=== PATIENT | male | born 1950 | race Caucasian/White ===

== ENCOUNTER 2016-11-14 11:05 | Emergency (ER) | payer MEDICARE, OTHER ==
--- NOTE | 2016-11-14 11:17 | ERNOTE ---
Animal Bite ER Presenting Symptoms: bitten Time Seen by Provider: 11/14/16 11:05 Source: patient Exam Limitations: no limitations Immunizations: IMMUNIZATION HX History of Influenza Vaccine No Hx Pneumococcal Vaccination No Allergies/Adverse Reactions: Allergies No Known Allergies Allergy (Verified 11/14/16 11:14) Home Medications: HOME MEDICATIONS Albuterol Sulfate [Proair Hfa] 1 - 2 puff IH Q4H PRN 10/17/13 [Last Taken Unknown] Fluticasone/Salmeterol [Advair 500-50 Diskus] 1 puff IH BID 10/17/13 [Last Taken Unknown] Lisinopril [Zestril] 20 mg PO DAILY 10/17/13 [Last Taken Unknown] Tiotropium [place] [Spiriva] 1 cap IH DAILY 10/17/13 [Last Taken Unknown] Amox Tr/Potassium Clavulanate [Augmentin 875-125 Tablet] 875 mg PO Q12H #10 tab 11/14/16 [Last Taken Unknown] Narrative: Patient was in his front yard when three pit bulls came from across the neighbors and bit him, his , and daughter. They were able to get into the house and call the police. He sustained a laceration to his left leg, denies any other injuries. the neighbors claim that the dogs were up to date on their immunizations, the police has the dogs in quarantine. Date (Duration): 11/14/16 Time (Timing): 10:30 Location of Incident: Reports: home Animal Type: Reports: dog Animal Appearance: healthy Animal's Immunization Status: Reports: UTD Observation/Capture: Reports: animal known, animal can be observed for 10 days Context of Attack: Denies: approached animal Severity of injury: Reports: bitten Location of Injury: Reports: lower extremity (L) Associated symptoms: Denies: numbness distally Review of Systems - Review of Systems Constitutional: Absent: recent illness, fever ENT: Absent: nose congestion Respiratory: Absent: shortness of breath Cardiology: Absent: chest pain Gastrointestinal/Abdominal: Absent: nausea, vomiting, abdominal pain Genitourinary: Present: no symptoms reported Musculoskeletal: Present: See HPI Skin: Present: See HPI Neurological: Absent: weakness, numbness - Patient's Past Medical History Patient History - Medical: No pertinent hx Patient History - Cardiac/Respiratory: COPD, Hypertension Patient History - Cancer: No Hx of Cancer Patient History - Surgical Procedures: No surgical history Patient History - Other: None - Social History Living Situations: home Psych History: No pertinent hx Alcohol Use: none Drug Use: none - Immunizations Hx Pneumococcal Vaccination: No History of Influenza Vaccine: No Physical Exam - Physical Exam General Appearance: Present: wd/wn, alert, no apparent distress Respiratory: Present: no respiratory distress, normal breath sounds, no accessory muscle use, lungs clear Cardiovascular/Chest: Present: regular rate, rhythm, no murmur Extremity Exam: Present: normal except - - two laceration on left leg just above knee on medial thigh 6 and 4cm , surrounding abrasions Neurological Exam: Present: alert, oriented, normal mood/affect, no motor/ sensory deficits Skin Exam: Present: normal color, warm/dry ED Progress - Vital Signs Patient's Vital Signs:: I have reviewed the patient's vital signs. Vital Signs: Vital Signs 11/14/16 11:07 Temperature 36.4 C L Pulse Rate 81 Respiratory 14 Rate Blood Pressure 169/76 O2 Sat by Pulse 93 Oximetry - Progress/Reassessment Chief Complaint: Animal Bite Procedures Leg Anesthesia: Lidocaine w/ Epi Length of Repair/Wound (cm): 6 - 6 and 4cm Wound's Depth/Shape: into subcutaneous, linear Wound Explored: no foreign body Wound Intervention: irrigated w/saline Distal NVT: neuro/vasc intact Suture Size/Type: 3-0, prolene Number of Sutures: 7 - 3 and 4 Layer Closure: Simple Wound Dressing: sterile dressing applied Departure Clinical Impression: Dog bite Qualifiers: Encounter type: initial encounter Qualified Code(s): W54.0XXA - Bitten by dog, initial encounter - Departure Disposition: Home self-care Condition: Good Instructions: Animal Bite Additional Instructions: have the sutures removed in 12 days Referrals: Marjorie Slaughter MD [Staff Physician] - Prescriptions: Amox Tr/Potassium Clavulanate [Augmentin 875-125 Tablet] 875 mg PO Q12H #10 tab
--- OUTSIDE RECORDS SUMMARY | 2016-11-14 11:34 | XMS REPORT | Continuity of Care Document ---
:1950 Author Organization [facility] ([facility]) Address [address] [place] [address] Phone [phone] Care Team Providers Name Role Phone Marcelo Stewart Primary Care Provider [phone] Source Comments This disclosure is being made pursuant to the Care Everywhere program, applicable federal and state laws, and may not contain all informaitonavailable regarding this patient.[facility] ([facility]) Active Allergies and Adverse Reactions No Known Allergies Current Medications Prescription Sig. Disp. Refills Start Date End Date Status triamcinolone 0.1 % apply topically 2 120 g 2 03/27/2012 Active cream times daily. Apply a thin layer to affected area. Indications: eczematous dermatitis aspirin 325 mg Take 650 mg by mouth Active tablet as needed. Indications: PAIN albuterol 90 Use 2 Puffs by 1 Inhaler 6 01/29/2013 Active mcg/Actuation inhalation every 6 inhaler hours as needed. Indications: BRONCHOSPASM PREVENTION tiotropium (SPIRIVA) Use 1 Cap by 90 Cap 3 01/29/2013 Active 18 mcg inhalation inhalation daily. capsule Indications: CHRONIC OBSTRUCTIVE PULMONARY DISEASE WITH BRONCHOSPASMS fluticasone-salmeter Use 1 Puff by 3 Inhaler 3 01/29/2013 Active ol (ADVAIR 500-50) inhalation 2 times inhaler daily. Indications: COPD ASSOCIATED WITH CHRONIC BRONCHITIS Active Problems Problem Noted Date Cataract, left eye 12/16/2012 Metabolic syndrome 04/26/2012 Pulmonary hypertension due to COPD 04/26/2012 Eczema 03/31/2012 Multiple actinic keratoses 03/27/2012 Tobacco use 02/22/2012 COPD, severe 02/22/2012 Immunizations Name Dates Previously Given Next Due Influenza, PF 04/26/2012 Pneumococcal Polysaccharide, PPSV23 (Pneumovax 23) 02/22/2012 Tdap 01/12/2012 Zoster, live (Zostavax) 01/29/2013 Social History Tobacco Use Types Packs/Day Years Used Date Former Smoker Cigarettes 1 50 Quit: 04/19/2012 Smokeless Tobacco: Former User Chew Quit: 06/18/1989 Tobacco Cessation:Counseling Given: Yes Comments:Quit on 2012 Alcohol Use Drinks/Week oz/Week Comments No 0 Glasses of wine layne boni 23 years ago; hx of 0 Cans of beer abuse 0 Standard drinks or equivalent Last Filed Vital Signs Vital Sign Reading Time Taken Blood Pressure 135/73 01/29/2013 11:00 AM CDT Pulse 53 01/29/2013 11:00 AM CDT Temperature 36.2 C (97.2 F) 01/29/2013 11:00 AM CDT Respiratory Rate 16 12/16/2012 2:30 PM CDT Height 1.873 m (6' 1.74") 01/29/2013 11:00 AM CDT Weight 83.462 kg (184 lb) 01/29/2013 11:00 AM CDT Body Mass Index 23.79 01/29/2013 11:00 AM CDT Oxygen Saturation 99% 12/16/2012 2:30 PM CDT Plan of Care Health Maintenance Due Date Last Done Comments Hepatitis B Vaccine (1 of 3 - Primary 1950 Series) Colonoscopy 1998 FOBT Colon Cancer Screening 1998 Sigmoidoscopy Colon Cancer Screening 1998 Prostate Cancer Screening 01/11/2013 01/12/2012 Pneumococcal Vaccine (1 of 2 - PCV13) 2013 02/22/2012 Influenza Vaccine: Seasonal (#1) 01/17/2016 04/26/2012 Lipid Disorder Screening 01/29/2018 01/29/2013, 04/26/2012, 01/12/2012 Td Vaccine 01/11/2022 01/12/2012 Tdap Vaccine Completed 01/12/2012 HCV Screening Completed 01/29/2013 Zoster Vaccine Completed 01/29/2013 Results from Last 3 Months Not on file
[2016-11-14 12:35] VITALS: BP 136/64
== END 2016-11-14 12:40 | disposition home or self-care (01) ==
LOC: ER 11:05
PROC: 0JQM0ZZ Repair Left Upper Leg Subcutaneous Tissue and Fascia, Open Approach (ICD-10-PCS; principal; 2016-11-14)
DX: S71.152A Open bite, left thigh, initial encounter (principal); W54.0XXA Bitten by dog, initial encounter; Y93.9 Activity, unspecified; Y92.007 Garden or yard of unspecified non-institutional (private) residence as the place of occurrence of the external cause

== ENCOUNTER 2016-11-16 12:16 | Emergency (ER) | payer MEDICARE, OTHER ==
--- OUTSIDE RECORDS SUMMARY | 2016-11-16 13:13 | XMS REPORT | Continuity of Care Document ---
:1950 Author Organization ([facility]) Address [address] [place] [address] Phone [phone] Care Team Providers Name Role Phone Marcelo Stewart Primary Care Provider [phone] Source Comments This disclosure is being made pursuant to the Care Everywhere program, applicable federal and state laws, and may not contain all informaitonavailable regarding this patient. ([facility]) Active Allergies and Adverse Reactions No [...]
--- NOTE | 2016-11-16 13:29 | ERNOTE ---
Animal Bite ER Date of Service: 11/16/16 Presenting Symptoms: bitten Time Seen by Provider: 11/16/16 13:06 Source: patient, family, RN notes reviewed, past records Exam Limitations: no limitations Immunizations: IMMUNIZATION HX Immunizations Up to Date Yes History of Influenza Vaccine Yes Hx Pneumococcal Vaccination Yes Allergies/Adverse Reactions: Allergies No Known Allergies Allergy (Verified 11/16/16 12:44) Home Medications: HOME MEDICATIONS Albuterol Sulfate [Proair Hfa] 1 - 2 puff IH Q4H PRN 10/17/13 [Last Taken Unknown] Fluticasone/Salmeterol [Advair 500-50 Diskus] 1 puff IH BID 10/17/13 [Last Taken Unknown] Lisinopril [Zestril] 20 mg PO DAILY 10/17/13 [Last Taken Unknown] Tiotropium [place] [Spiriva] 1 cap IH DAILY 10/17/13 [Last Taken Unknown] Amox Tr/Potassium Clavulanate [Augmentin 875-125 Tablet] 875 mg PO Q12H #10 tab 11/14/16 [Last Taken Unknown] Narrative: Analysis a 66-year-old male individual to the emergency department for concerns about infection in a dog bite that he sustained 2 days ago. He was bitten on the inner aspect of the left distal thigh. The wound was loosely closed with sutures. He was started on Augmentin and has been taking this since then. He is afebrile on arrival and has not taken any antipyretics today. He does report having a little bit more pain due to the injury today than what he did yesterday. He states that the tissue surrounding the wound is redder today, but he denies any drainage from the wound. The dog that he was bitten by what is found to not have been vaccinated for rabies. The animal was euthanized by a local farm management supervisor and specimens were sent to the state laboratory for testing. Date (Duration): 10/17/16 Prior Treatment: Reports: recently seen, treated by physician, currently on antibiotics Review of Systems - Review of Systems Constitutional: Absent: fever, chills, malaise EYE: Present: no symptoms reported ENT: Present: no symptoms reported Respiratory: Present: no symptoms reported Cardiology: Present: no symptoms reported Gastrointestinal/Abdominal: Absent: nausea, vomiting, abdominal pain, eating less, drinking less Genitourinary: Present: no symptoms reported Musculoskeletal: Absent: joint pain, joint swelling Skin: Present: change in color. Absent: lumps Neurological: Absent: headache, dizziness/light-headedness, weakness, numbness, tingling Endocrine: Present: no symptoms reported Hematologic/Lymphatic: Present: no symptoms reported Psych: Present: no symptoms reported - Patient's Past Medical History Patient History - Medical: No pertinent hx Patient History - Cardiac/Respiratory: COPD, Hypertension Patient History - Cancer: No Hx of Cancer Patient History - Surgical Procedures: Cataracts Patient History - Other: None - Social History Living Situations: home Psych History: No pertinent hx Smoking Status: Never smoker Have you smoked in the past 12 months: No Do you dip or chew tobacco: No Alcohol Use: none Drug Use: none - Immunizations Immunizations Up to Date: Yes Hx Pneumococcal Vaccination: Yes History of Influenza Vaccine: Yes Physical Exam - Physical Exam General Appearance: Present: wd/wn, alert, no apparent distress Respiratory: Present: no respiratory distress, no accessory muscle use, expiration (prolonged), wheezing - mild Cardiovascular/Chest: Present: regular rate, rhythm, no murmur, normal peripheral pulses Extremity Exam: Present: normal range of motion. Absent: pedal edema, joint redness Neurological Exam: Present: alert, oriented, normal mood/affect, no motor/ sensory deficits Skin Exam: Present: warm/dry, other - Sutured bite wound present on left medial distal thigh with surrounding erythema and ecchymosis, no drainage noted, mildly tender with palpation ED Progress - Results and Orders Patient's Lab Results:: I have reviewed the patient's lab results. - Vital Signs Patient's Vital Signs:: I have reviewed the patient's vital signs. Vital Signs: Vital Signs 11/16/16 12:40 Temperature 37.1 C Blood Pressure 148/92 O2 Sat by Pulse 92 Oximetry - Progress/Reassessment Chief Complaint: Animal Bite Progress:: Unchanged Departure Clinical Impression: Encounter for wound re-check Dog bite Qualifiers: Encounter type: sequela Qualified Code(s): W54.0XXS - Bitten by dog, sequela - Departure Disposition: Home Follow Up Needed Condition: Stable Additional Instructions: Return for fever, chills, vomiting, worsening pain/redness, drainage or other concerns - otherwise have sutures removed as scheduled Referrals: Marjorie Slaughter MD [Primary Care Provider] -
[2016-11-16 13:41] LABS: Hematocrit 41.5 % (42.0-52.0); Hemoglobin 13.9 gm/dL (13.5-18.0); Mean Corpuscular Hemoglobin 29.1 pg (27-31); Mean Corpuscular Hgb Conc 33.5 g/dl (32-36); Mean Platelet Volume 9.7 fl (6.0-9.5); Neutrophil % 69.7 % (42-75.0); Platelet Count 208 K/mm3 (150-450); Red Blood Count 4.77 M/mm3 (4.7-6.0); White Blood Count 7.2 K/mm3 (4.0-10.5)
[2016-11-16 13:55] LABS: Albumin * 3.8 gm/dl (3.4-5.0); Anion Gap 9.3 mmol/L (6.8-13.8); BUN/Creatinine Ratio 18.9 (9.0-21.6); Bilirubin, Total 0.9 mg/dL (0.0-1.1); CRP 1.8 mg/dL (0.0-0.9); Ca. Corrected For Albumin 8.6 mg/dL (8.4-10.2); Calcium * 8.8 mg/dL (7.9-10.9); Carbon Dioxide 30.7 mmol/L (24-32.6); Total Protein 8.1 gm/dL (6.2-8.2)
[2016-11-16 14:31] VITALS: BP 142/87
== END 2016-11-16 14:18 | disposition home or self-care (01) ==
LOC: ER 12:16
DX: S71.152S Open bite, left thigh, sequela (principal); W54.0XXS Bitten by dog, sequela; I10 Essential (primary) hypertension; J44.9 Chronic obstructive pulmonary disease, unspecified

== ENCOUNTER 2016-11-24 11:26 | Emergency (ER) | payer MEDICARE, OTHER ==
[2016-11-24 11:37] VITALS: BP 141/75
--- NOTE | 2016-11-24 12:09 | ERNOTE ---
Medical Problem HPI - General Chief Complaint: Screening, Suture/Wound Time Seen by Provider: 11/24/16 11:59 Source: patient Exam Limitations: no limitations - Immun/Allergies/Home Medications Immunizations: IMMUNIZATION HX Immunizations Up to Date Yes History of Influenza Vaccine Yes Hx Pneumococcal Vaccination Yes Allergies/Adverse Reactions: Allergies No Known Allergies Allergy (Verified 11/16/16 12:44) Home Medications: HOME MEDICATIONS Albuterol Sulfate [Proair Hfa] 1 - 2 puff IH Q4H PRN 10/17/13 [Last Taken Unknown] Fluticasone/Salmeterol [Advair 500-50 Diskus] 1 puff IH BID 10/17/13 [Last Taken Unknown] Lisinopril [Zestril] 20 mg PO DAILY 10/17/13 [Last Taken Unknown] Tiotropium [place] [Spiriva] 1 cap IH DAILY 10/17/13 [Last Taken Unknown] Amox Tr/Potassium Clavulanate [Augmentin 875-125 Tablet] 875 mg PO Q12H #10 tab 11/14/16 [Last Taken Unknown] Amox Tr/Potassium Clavulanate [Augmentin 875-125 Tablet] 875 mg PO Q12H #10 tab 11/24/16 [Last Taken Unknown] - History of Present History Narrative: Patient here for an assessment of his sutured leg wound which is secondary to dog bite 10 days ago. He still having some very minor drainage coming out of the wound with mild erythema around the suture sites. All normally would take the sutures out in 10 days this area I think would benefit from another 4 days of the sutures being in and I will start him on 5 more days of antibiotics. Severity: mild Review of Systems - Review of Systems Constitutional: Present: See HPI EYE: Present: no symptoms reported ENT: Present: no symptoms reported Respiratory: Present: no symptoms reported Cardiology: Present: no symptoms reported Gastrointestinal/Abdominal: Present: no symptoms reported Genitourinary: Present: no symptoms reported Musculoskeletal: Present: no symptoms reported Skin: Present: See HPI Neurological: Present: no symptoms reported Endocrine: Present: no symptoms reported Hematologic/Lymphatic: Present: no symptoms reported Psych: Present: no symptoms reported - Patient's Past Medical History Patient History - Medical: No pertinent hx Patient History - Cardiac/Respiratory: COPD, Hypertension Patient History - Cancer: No Hx of Cancer Patient History - Surgical Procedures: Cataracts Patient History - Other: None - Social History Living Situations: home Psych History: No pertinent hx Alcohol Use: none Drug Use: none - Immunizations Immunizations Up to Date: Yes Hx Pneumococcal Vaccination: Yes History of Influenza Vaccine: Yes Physical Exam - Physical Exam General Appearance: Present: wd/wn, alert, no apparent distress Eye Exam: Normal inspection: bilateral, PERRL: bilateral Ears, Nose, Throat: Present: normal ENT inspection, H, normal pharynx Neck: Present: normal inspection, nontender Respiratory: Present: no respiratory distress, normal breath sounds, no accessory muscle use, chest nontender, lungs clear Cardiovascular/Chest: Present: regular rate, rhythm, no murmur, normal peripheral pulses Gastrointestinal/Abdominal: Present: normal bowel sounds, nontender, nondistended, soft, no organomegaly Rectal Exam: Present: deferred Back Exam: Present: normal inspection, normal range of motion Extremity Exam: Present: normal inspection, non-tender, no edema, normal range of motion Neurological Exam: Present: alert, oriented, normal mood/affect Skin Exam: Present: other - patient's laceration appears to be healing albeit somewhat slowly on the dog bite of the inner distal left thigh. Lymphatic Exam: Present: no adenopathy ED Progress - Vital Signs Vital Signs: Vital Signs 11/24/16 11:33 Temperature 36.8 C Pulse Rate 62 Respiratory 17 Rate Blood Pressure 141/75 O2 Sat by Pulse 93 Oximetry - Progress/Reassessment Chief Complaint: Screening, Suture/Wound Plan - Plan Plan: We will leave the sutures in for an additional 4 days patient be started on 5 days antibiotics. Departure - Departure Clinical Impression: Dog bite Qualifiers: Encounter type: subsequent encounter Qualified Code(s): W54.0XXD - Bitten by dog, subsequent encounter Disposition: Home self-care Condition: Good Instructions: Animal Bite Referrals: Marjorie Slaughter MD [Primary Care Provider] - Prescriptions: Amox Tr/Potassium Clavulanate [Augmentin 875-125 Tablet] 875 mg PO Q12H #10 tab
--- OUTSIDE RECORDS SUMMARY | 2016-11-24 12:10 | XMS REPORT | Continuity of Care Document ---
:1950 Author Organization [facility] ([facility]) Address [address] [place] [address] Phone [phone] Care Team Providers Name Role Phone Marcelo Stewart Primary Care Provider [phone] Source Comments This disclosure is being made pursuant to the Care Everywhere program, applicable federal and state laws, and may not contain all informaitonavailable regarding this patient.[facility] ([facility]) Active Allergies and Adverse Reactions No Known [...] oz/Week Comments No 0 Glasses of wine lyane boni 23 years ago; hx of 0 [...]
== END 2016-11-24 12:28 | disposition home or self-care (01) ==
LOC: ER 11:26
DX: S71.112D Laceration without foreign body, left thigh, subsequent encounter (principal); W54.0XXD Bitten by dog, subsequent encounter

== ENCOUNTER 2016-11-30 10:51 | Emergency (ER) | payer MEDICARE, OTHER ==
[2016-11-30 10:52] VITALS: BP 141/75
--- OUTSIDE RECORDS SUMMARY | 2016-11-30 11:18 | XMS REPORT | Continuity of Care Document ---
:1950 Author Organization [facility] ([facility]) Address [address] [place] [address] Phone [phone] Care Team Providers Name Role Phone Marcelo Stewart Primary Care Provider [phone] Source Comments This disclosure is being made pursuant to the Care Everywhere program, applicable federal and state laws, and may not contain all informaitonavailable regarding this patient.[facility] ([facility]) Active Allergies and Adverse Reactions [...]
== END 2016-11-30 11:09 | disposition home or self-care (01) ==
LOC: ER 10:51
DX: Z48.02 Encounter for removal of sutures (principal)

== ENCOUNTER 2017-03-11 10:04 | Emergency (ER) | payer MEDICARE, OTHER ==
[2017-03-11] MEDS ORDERED: ALBUTEROL SULFATE/IPRATROPIUM 3 ML NEBU IH ONE ×2 (10:42→10:43)
--- NOTE | 2017-03-11 10:43 | ERNOTE ---
Date of Service: 03/11/17 Time Seen by Provider: 03/11/17 10:36 Stated Complaint: COUGH Presenting Symptoms:: cough Source: patient, family, RN notes reviewed Exam Limitations: no limitations Immunizations: IMMUNIZATION HX Immunizations Up to Date Yes History of Influenza Vaccine No Hx Pneumococcal Vaccination Yes Allergies/Adverse Reactions: Allergies No Known Allergies Allergy (Verified 03/11/17 10:27) Home Medications: HOME MEDICATIONS Albuterol Sulfate [Proair Hfa] 1 - 2 puff IH Q4H PRN 10/17/13 [Last Taken Unknown] Fluticasone/Salmeterol [Advair 500-50 Diskus] 1 puff IH BID 10/17/13 [Last Taken Unknown] Lisinopril [Zestril] 20 mg PO DAILY 10/17/13 [Last Taken Unknown] Tiotropium [place] [Spiriva] 1 cap IH DAILY 10/17/13 [Last Taken Unknown] Albuterol Sulfate/Ipratropium [Duoneb 2.5-0.5MG/3ML Soln] 3 ml IH Q6H PRN #60 nebu 03/11/17 [Last Taken Unknown] Azithromycin [Zithromax] 250 mg PO DAILY #6 tablet 03/11/17 [Last Taken Unknown] predniSONE [Prednisone] 2 tab PO DAILY #14 tab 03/11/17 [Last Taken Unknown] - History of Present Ilness Narrative: 66 year old male ambulatory to the ED with his for increasing shortness of breath and coughing that began yesterday. He has COPD and reports having an episode like this about 3 times a year. He states he usually gets a ZPack and prednisone and improves. He has home O2 that he only uses at night and prn, but is using it currently. He also has a nebulizer. He has not used this today. Date (Duration): 03/10/17 Timing: getting worse Frequency/Possible Cause: Reports: unknown cause Associated Symptoms: Reports: cough, shortness of breath, wheezing, nasal congestion, headache. Denies: chest pain/soreness, facial pain, nasal drainage , dizziness, lightheadedness, earache, sore throat, muscle aches, fever/chills Prior Treatment: Denies: recently seen, currently on antibiotics Review of Systems - Review of Systems Constitutional: Present: fatigue, malaise, decreased activity level. Absent: fever, chills EYE: Present: no symptoms reported ENT: Present: nose congestion. Absent: ear pain, nasal drainage, sore throat Respiratory: Present: shortness of breath, cough, wheezing. Absent: orthopnea Cardiology: Absent: chest pain, edema Gastrointestinal/Abdominal: Absent: nausea, abdominal pain Genitourinary: Present: no symptoms reported Musculoskeletal: Present: no symptoms reported Skin: Absent: lesions, lumps, change in color Neurological: Present: headache. Absent: dizziness/light-headedness Endocrine: Present: no symptoms reported Hematologic/Lymphatic: Present: no symptoms reported Psych: Present: no symptoms reported - Patient's Past Medical History Patient History - Medical: No pertinent hx Patient History - Cardiac/Respiratory: COPD, Hypertension Patient History - Cancer: No Hx of Cancer Patient History - Surgical Procedures: Cataracts Patient History - Other: None - Social History Living Situations: home Psych History: No pertinent hx Smoking Status: Former smoker Alcohol Use: none Drug Use: none - Immunizations Immunizations Up to Date: Yes Hx Pneumococcal Vaccination: Yes History of Influenza Vaccine: No Physical Exam - Physical Exam General Appearance: Present: wd/wn, alert, mild distress Ears, Nose, Throat: Present: nasal congestion, pharyngeal erythema. Absent: abnormal TM (R), abnormal TM (L), sinus pain/drainage, pharyngeal swelling Neck: Present: normal inspection, nontender, supple Respiratory: Present: no respiratory distress, accessory muscle use - Mild, pursed lip breathing, decreased breath sounds - worse on left, expiration ( prolonged), wheezing - mild, right lung Cardiovascular/Chest: Present: regular rate, rhythm, no murmur, normal peripheral pulses Extremity Exam: Present: normal inspection, normal range of motion, no edema Neurological Exam: Present: alert, oriented, normal mood/affect, no motor/ sensory deficits Skin Exam: Present: normal color, warm/dry ED Progress - Results and Orders Patient's Lab Results:: I have reviewed the patient's lab results. - Vital Signs Patient's Vital Signs:: I have reviewed the patient's vital signs. Vital Signs: Vital Signs 03/11/17 10:24 Temperature 37.2 C Pulse Rate 85 Respiratory 16 Rate Blood Pressure 130/78 O2 Sat by Pulse 94 Oximetry - X-Ray X-Ray #1 X-Ray: chest Interpretation: Reviewed by me X-ray Comments: IMPRESSION: 1. Potential right lower lobe posterior/medial basal segment infiltrate suggested, superimposed on findings suggestive of emphysema/COPD. Correlate clinically for pneumonia, and consider follow- up to document resolution. 2. Additional comments are as above. Electronically signed by Hayde Salamanca M.D.. Hayde Salamanca MD - Progress/Reassessment Chief Complaint: Upper Respiratory Symptoms Progress:: Unchanged Departure Clinical Impression: Pneumonia Qualifiers: Pneumonia type: due to unspecified organism Laterality: right Lung location: middle lobe of lung Qualified Code(s): J18.1 - Lobar pneumonia, unspecified organism - Departure Disposition: Home Follow Up Needed Condition: Stable Instructions: Community-Acquired Pneumonia, Adult, [id number] Additional Instructions: Continue your routine medications Start Azithromycin and prednisone today Use DueNeb treatments at least 3 times a day - can also use your albuterol in between doses if needed Return for increasing shortness of breath, high fever, vomiting, or other new/ worsening symptoms Referrals: Marjorie Slaughter MD [Primary Care Provider] - Prescriptions: Albuterol Sulfate/Ipratropium [Duoneb 2.5-0.5MG/3ML Soln] 3 ml IH Q6H PRN #60 nebu PRN Reason: Wheezing Azithromycin [Zithromax] 250 mg PO DAILY #6 tablet predniSONE [Prednisone] 2 tab PO DAILY #14 tab
[2017-03-11 11:06] LABS: Hematocrit 44.2 % (42.0-52.0); Hemoglobin 14.8 gm/dL (13.5-18.0); Mean Cell Volume 87.2 fl (78-100); Mean Corpuscular Hemoglobin 29.2 pg (27-31); Mean Corpuscular Hgb Conc 33.5 g/dl (32-36); Platelet Count 205 K/mm3 (150-450); Red Blood Count 5.07 M/mm3 (4.7-6.0); Red Cell Distribution Width 13.2 % (11.5-14.0); White Blood Count 15.7 K/mm3 (4.0-10.5)
[2017-03-11 11:09] LABS: Total Cells Counted 100
[2017-03-11 11:22] LABS: Albumin * 3.7 gm/dl (3.4-5.0); Anion Gap 12.8 mmol/L (6.8-13.8); BUN/Creatinine Ratio 17.8 (9.0-21.6); Bilirubin, Total 1.5 mg/dL (0.0-1.1); Ca. Corrected For Albumin 8.5 mg/dL (8.4-10.2); Calcium * 8.6 mg/dL (7.9-10.9); Potassium 3.8 mmol/L (3.4-4.6); Total Protein 8.3 gm/dL (6.2-8.2)
[2017-03-11 11:32] LABS: Band 1 % (0-2.0); Lymphocyte 10 % (20-51); Monocyte 4 % (0-9); Neutrophil 85 % (42-75); Neutrophil # 13.3 K/mm3 (1.3-6.0)
[2017-03-11 11:33] LABS: Platelet Estimate Normal (NORMAL); RBC Morphology Normal (NORMAL)
[2017-03-11 11:59] VITALS: BP 128/74
== END 2017-03-11 11:57 | disposition home or self-care (01) ==
LOC: ER 10:04
DX: J18.1 Lobar pneumonia, unspecified organism (principal); J44.9 Chronic obstructive pulmonary disease, unspecified; I10 Essential (primary) hypertension